=== PATIENT | female | born 1960 | race Caucasian/White ===

== ENCOUNTER → 2018-04-12 13:10 | Outpatient (CLI) | payer OTHER, SELFPAY ==
[2018-04-12 13:55] LABS: Hemoglobin A1C% w Est Avg Glu 8.6 % (4.0-6.0)
[2018-04-12 14:05] LABS: Alanine Aminotransferase 44 IU/L (9-52); Albumin 4.8 g/dL (3.5-5.0); Albumin Globulin Ratio 1.1 (1.0-2.8); Alkaline Phosphatase 140 U/L (38-126); Aspartate Aminotransferase 39 IU/L (14-36); BUN Creatinine Ratio 17.8 (6-22); Bilirubin Total 0.7 mg/dL (0.2-1.3); Blood Urea Nitrogen 16 mg/dL (7-17); Calcium 10.2 mg/dL (8.4-10.2); Carbon Dioxide 31 mmol/L (22-32); Chloride 95 mmol/L (98-107); Estimated Glomerular Filt Rate > 60.0 mL/min (>60); Globulin 4.3 g/dL (1.7-4.1); Glucose 325 mg/dL (70-100); HEMOLYSIS < 15 (0-50); Potassium 4.6 mmol/L (3.4-5.1); Sodium 139 mmol/L (137-145); Total Protein 9.1 g/dL (6.3-8.2)
[2018-04-12 16:01] LABS: Creatinine Urine Random 56.4 mg/dL
[2018-04-12 16:11] LABS: Microalbumi Creatinin Ratio Ur 10.6 ug/mg CR (<30); Microalbumin Urine Random < 0.6 mg/dL (0-1.6)
== END ==
PROVIDERS: PCP Internal Medicine; Visit Provider Internal Medicine
DX: E78.00 Pure hypercholesterolemia, unspecified (principal); E11.40 Type 2 diabetes mellitus with diabetic neuropathy, unspecified
CPT/HCPCS: 36415; 80053; 82043; 82570; 83036

== ENCOUNTER → 2018-07-19 10:23 | Outpatient (CLI) | payer OTHER, SELFPAY ==
[2018-07-19 12:26] LABS: Alanine Aminotransferase 46 IU/L (9-52); Albumin 4.9 g/dL (3.5-5.0); Albumin Globulin Ratio 1.5 (1.0-2.8); Alkaline Phosphatase 102 U/L (38-126); Aspartate Aminotransferase 37 IU/L (14-36); BUN Creatinine Ratio 21.4 (6-22); Bilirubin Total 0.9 mg/dL (0.2-1.3); Blood Urea Nitrogen 15 mg/dL (7-17); Calcium 10.7 mg/dL (8.4-10.2); Carbon Dioxide 30 mmol/L (22-32); Chloride 98 mmol/L (98-107); Estimated Glomerular Filt Rate > 60.0 mL/min (>60); Globulin 3.3 g/dL (1.7-4.1); Glucose 276 mg/dL (80-110); HEMOLYSIS < 15 (0-50); Potassium 4.3 mmol/L (3.4-5.1); Sodium 143 mmol/L (137-145); Total Protein 8.2 g/dL (6.3-8.2)
== END ==
PROVIDERS: PCP Internal Medicine; Visit Provider Internal Medicine
DX: E78.00 Pure hypercholesterolemia, unspecified (principal); E11.40 Type 2 diabetes mellitus with diabetic neuropathy, unspecified
CPT/HCPCS: 36415; 80053; 83036

== ENCOUNTER → 2019-01-10 10:34 | Outpatient (CLI) | payer OTHER, SELFPAY ==
[2019-01-10 12:09] LABS: Hemoglobin 14.9 g/dL (12.0-16.0)
[2019-01-10 12:35] LABS: Hemoglobin A1C% w Est Avg Glu 9.2 % (4.0-6.0)
[2019-01-10 12:36] LABS: BUN Creatinine Ratio 22.5 (6-22); Blood Urea Nitrogen 18 mg/dL (7-17); Calcium 10.4 mg/dL (8.4-10.2); Carbon Dioxide 28 mmol/L (22-32); Chloride 99 mmol/L (98-107); Estimated Glomerular Filt Rate > 60.0 mL/min (>60); Glucose 194 mg/dL (80-110); HEMOLYSIS < 15 (0-50); Sodium 139 mmol/L (137-145)
[2019-01-11 06:58] LABS: Cholesterol 201 mg/dL (140-199); HDL Cholesterol 44 mg/dL (40-60); LDL Cholesterol Calculated 107 mg/dL (<100); Triglycerides 252 mg/dL (35-150)
== END ==
PROVIDERS: PCP Internal Medicine; Visit Provider Internal Medicine
DX: E11.9 Type 2 diabetes mellitus without complications (principal); E78.00 Pure hypercholesterolemia, unspecified
CPT/HCPCS: 36415; 80048; 80061; 83036; 85018

== ENCOUNTER → 2019-01-12 12:33 | Outpatient (CLI) | payer OTHER, SELFPAY ==
[2019-01-14 15:52] LABS: C Peptide 2.62 ng/mL (0.80-3.85)
== END ==
PROVIDERS: PCP Internal Medicine; Visit Provider Internal Medicine
DX: E11.40 Type 2 diabetes mellitus with diabetic neuropathy, unspecified (principal)
CPT/HCPCS: 36415; 84681

== ENCOUNTER → 2019-01-29 08:12 | Outpatient (CLI) | payer OTHER, SELFPAY ==
--- NOTE | 2019-01-29 08:16 | DI.MG.S_ITS ---
BILATERAL DIGITAL SCREENING MAMMOGRAM 3D/2D WITH CAD: 01/29/2019 CLINICAL: Routine screening. Comparison is made to exams dated: 06/23/2017 mammogram, 05/22/2015 mammogram, and 03/22/2014 mammogram - [facility]. The tissue of both breasts is predominantly fatty. Current study was also evaluated with a Computer Aided Detection (CAD) system. No significant masses, calcifications, or other findings are seen in either breast. There has been no significant interval change. IMPRESSION: NEGATIVE There is no mammographic evidence of malignancy. A 1 year screening mammogram is recommended. This exam was interpreted at Station ID: [id number]. NOTE: For mammograms, a report in lay terms will be sent to the patient. Approximately 15% of breast malignancies will not be visualized mammographically. In the management of a palpable breast mass, a negative mammogram must not discourage biopsy of a clinically suspicious lesion. Electronically Signed By: Christine coles/jessica:01/31/2019 08:50:17 copy to: Tanner Nuñez letter sent: Normal Exam ACR BI-RADS Category 1: Negative 3341F
== END ==
PROVIDERS: PCP Internal Medicine; Visit Provider Specialist
DX: Z12.31 Encounter for screening mammogram for malignant neoplasm of breast (principal)
CPT/HCPCS: 77063; 77067

== ENCOUNTER → 2020-02-10 12:26 | Outpatient (CLI) | payer OTHER, SELFPAY ==
[2020-02-10 13:35] LABS: Add Manual Diff / Slide Review NO; Basophils Absolute Auto 0 /uL (0-100); Basophils Percent Auto 0.6 % (0-2); Eosinophils Absolute Auto 100 /uL (0-450); Eosinophils Percent Auto 1.6 % (2-4); Hematocrit 46.3 % (36-46); Hemoglobin 15.2 g/dL (12.0-16.0); Lymphocytes Absolute Auto 2100 /uL (1100-4500); Lymphocytes Percent Auto 26.2 % (25-40); Mean Corpuscular HGB Conc 32.9 % (30-36); Mean Corpuscular Volume 91.1 fL (80-100); Monocytes Absolute Auto 600 /uL (0-900); Monocytes Percent Auto 7.2 % (3-14); Neutrophils Absolute Auto 5200 /uL (1500-7000); Neutrophils Percent Auto 64.4 % (50-75); Platelet Count 300 X10^3/uL (150-400); Red Blood Cell Count 5.09 X10^6/uL (4.0-5.2); Red Cell Distribution Width 13.1 % (11.6-14.8); White Blood Cell Count 8.1 X10^3/uL (4.5-11.0)
[2020-02-10 13:45] LABS: Alanine Aminotransferase 53 IU/L (<35); Albumin 4.7 g/dL (3.5-5.0); Albumin Globulin Ratio 1.2 (1.0-2.8); Alkaline Phosphatase 123 U/L (38-126); Aspartate Aminotransferase 55 IU/L (14-36); BUN Creatinine Ratio 23.3 (6-22); Bilirubin Total 0.8 mg/dL (0.2-1.3); Blood Urea Nitrogen 17 mg/dL (7-17); Calcium 10.6 mg/dL (8.4-10.2); Carbon Dioxide 24 mmol/L (22-32); Chloride 101 mmol/L (98-107); Cholesterol 193 mg/dL (140-199); Estimated Glomerular Filt Rate > 60.0 mL/min (>60); Globulin 3.8 g/dL (1.7-4.1); Glucose 197 mg/dL (80-110); HDL Cholesterol 42 mg/dL (40-60); HEMOLYSIS < 15 (0-50); Hemoglobin A1C% w Est Avg Glu 8.3 % (4.0-6.0); LDL Cholesterol Calculated 106 mg/dL (<100); Potassium 3.8 mmol/L (3.4-5.1); Sodium 139 mmol/L (137-145); Total Protein 8.5 g/dL (6.3-8.2); Triglycerides 226 mg/dL (35-150)
[2020-02-10 14:12] LABS: Thyroid Stimulating Hormone 3.46 uIU/mL (0.47-4.68)
== END ==
PROVIDERS: PCP Internal Medicine; Referring Provider Internal Medicine; Visit Provider Internal Medicine
DX: E11.40 Type 2 diabetes mellitus with diabetic neuropathy, unspecified (principal); E78.00 Pure hypercholesterolemia, unspecified; L65.9 Nonscarring hair loss, unspecified
CPT/HCPCS: 36415; 80053; 80061; 83036; 84443; 85025

== ENCOUNTER → 2020-03-08 14:50 | Outpatient (CLI) | payer OTHER, SELFPAY ==
[2020-03-09 12:08] LABS: SARS CoV19 IgG Negative (Negative)
== END ==
PROVIDERS: PCP Internal Medicine; Referring Provider Internal Medicine; Visit Provider Internal Medicine
DX: Z03.818 Encounter for observation for suspected exposure to other biological agents ruled out (principal)
CPT/HCPCS: 36415; 86769

== ENCOUNTER → 2020-05-25 11:37 | Outpatient (CLI) | payer OTHER, SELFPAY ==
--- NOTE | 2020-05-25 | DI.MG.S_ITS ---
BILATERAL DIGITAL SCREENING MAMMOGRAM 3D/2D WITH CAD: 05/25/2020 CLINICAL: Routine screening. Comparison is made to exams dated: 01/29/2019 mammogram, 06/23/2017 mammogram, 05/22/2015 mammogram, 03/22/2014 mammogram, 03/21/2013 mammogram, and 03/19/2012 mammogram - [facility]. The tissue of both breasts is predominantly fatty. Current study was also evaluated with a Computer Aided Detection (CAD) system. No significant masses, calcifications, or other findings are seen in either breast. There has been no significant interval change. IMPRESSION: NEGATIVE There is no mammographic evidence of malignancy. A 1 year screening mammogram is recommended. This exam was interpreted at Station ID: [id number]. NOTE: For mammograms, a report in lay terms will be sent to the patient. Approximately 15% of breast malignancies will not be visualized mammographically. In the management of a palpable breast mass, a negative mammogram must not discourage biopsy of a clinically suspicious lesion. Electronically Signed By: Santo johnson/jessica:05/25/2020 13:26:49 copy to: Tanner Nuñez letter sent: Normal Exam ACR BI-RADS Category 1: Negative 3341F
== END ==
PROVIDERS: PCP Internal Medicine; Referring Provider Internal Medicine; Visit Provider Specialist
DX: Z12.31 Encounter for screening mammogram for malignant neoplasm of breast (principal)
CPT/HCPCS: 77063; 77067

== ENCOUNTER → 2020-05-30 13:29 | Outpatient (CLI) | payer OTHER, SELFPAY | PROVIDERS: PCP Internal Medicine; Referring Provider Internal Medicine; Visit Provider Internal Medicine | DX: M85.88 Other specified disorders of bone density and structure, other site (principal); Z78.0 Asymptomatic menopausal state; E11.9 Type 2 diabetes mellitus without complications; Z82.62 Family history of osteoporosis | CPT/HCPCS: 77080 ==

== ENCOUNTER → 2020-07-24 11:29 | Outpatient (CLI) | payer OTHER, SELFPAY ==
[2020-07-24 12:46] LABS: Hemoglobin A1C% w Est Avg Glu 8.9 % (4.0-6.0)
[2020-07-24 12:51] LABS: Alanine Aminotransferase 43 IU/L (<35); Albumin 4.6 g/dL (3.5-5.0); Albumin Globulin Ratio 1.4 (1.0-2.8); Alkaline Phosphatase 110 U/L (38-126); Aspartate Aminotransferase 42 IU/L (14-36); BUN Creatinine Ratio 18.2 (6-22); Bilirubin Total 0.7 mg/dL (0.2-1.3); Blood Urea Nitrogen 12 mg/dL (7-17); Calcium 9.7 mg/dL (8.4-10.2); Carbon Dioxide 28 mmol/L (22-32); Chloride 105 mmol/L (98-107); Cholesterol 175 mg/dL (140-199); Estimated Glomerular Filt Rate > 60.0 mL/min (>60); Globulin 3.4 g/dL (1.7-4.1); Glucose 180 mg/dL (80-110); HDL Cholesterol 48 mg/dL (40-60); HEMOLYSIS < 15 (0-50); LDL Cholesterol Calculated 83 mg/dL (<100); Potassium 3.9 mmol/L (3.4-5.1); Sodium 139 mmol/L (137-145); Triglycerides 221 mg/dL (35-150)
[2020-07-25 16:36] LABS: Fecal Immunochemical Test Negative (Negative)
== END ==
PROVIDERS: PCP Internal Medicine; Referring Provider Internal Medicine; Visit Provider Internal Medicine
DX: E11.65 Type 2 diabetes mellitus with hyperglycemia (principal); E78.5 Hyperlipidemia, unspecified; R94.5 Abnormal results of liver function studies; Z12.11 Encounter for screening for malignant neoplasm of colon
CPT/HCPCS: 36415; 80053; 80061; 82274; 83036

== ENCOUNTER → 2020-12-27 12:55 | Outpatient (CLI) | payer OTHER, SELFPAY ==
[2020-12-27 15:33] LABS: Alanine Aminotransferase 24 IU/L (<35); Albumin 4.6 g/dL (3.5-5.0); Albumin Globulin Ratio 1.4 (1.0-2.8); Alkaline Phosphatase 91 U/L (38-126); Aspartate Aminotransferase 31 IU/L (14-36); BUN Creatinine Ratio 20.7 (6-22); Bilirubin Total 0.5 mg/dL (0.2-1.3); Blood Urea Nitrogen 18 mg/dL (7-17); Calcium 10.1 mg/dL (8.4-10.2); Carbon Dioxide 29 mmol/L (22-32); Chloride 101 mmol/L (98-107); Estimated Glomerular Filt Rate > 60.0 mL/min (>60); Globulin 3.4 g/dL (1.7-4.1); Glucose 126 mg/dL (80-110); HEMOLYSIS < 15 (0-50); Potassium 4.4 mmol/L (3.4-5.1); Sodium 141 mmol/L (137-145)
[2020-12-27 15:58] LABS: Creatinine Urine Random 216.6 mg/dL
[2020-12-27 16:02] LABS: Microalbumi Creatinin Ratio Ur 7.3 ug/mg CR (<30); Microalbumin Urine Random 1.6 mg/dL (0-1.6)
== END ==
PROVIDERS: PCP Internal Medicine; Referring Provider Internal Medicine; Visit Provider Internal Medicine
DX: E11.65 Type 2 diabetes mellitus with hyperglycemia (principal); E78.5 Hyperlipidemia, unspecified; R79.89 Other specified abnormal findings of blood chemistry; Z79.4 Long term (current) use of insulin
CPT/HCPCS: 36415; 80053; 82043; 82570; 83036

== ENCOUNTER → 2021-04-12 10:31 | Outpatient (CLI) | payer OTHER, SELFPAY ==
[2021-04-12 11:54] LABS: Hemoglobin A1C% w Est Avg Glu 6.8 % (4.0-6.0)
[2021-04-12 11:57] LABS: BUN Creatinine Ratio 15.3 (6-22); Blood Urea Nitrogen 13 mg/dL (7-17); Calcium 9.9 mg/dL (8.4-10.2); Carbon Dioxide 30 mmol/L (22-32); Chloride 104 mmol/L (98-107); Estimated Glomerular Filt Rate > 60.0 mL/min (>60); Glucose 86 mg/dL (80-110); HEMOLYSIS < 15 (0-50); Potassium 3.5 mmol/L (3.4-5.1); Sodium 142 mmol/L (137-145)
== END ==
PROVIDERS: PCP Internal Medicine; Referring Provider Internal Medicine; Visit Provider Internal Medicine
DX: E11.65 Type 2 diabetes mellitus with hyperglycemia (principal); E78.5 Hyperlipidemia, unspecified
CPT/HCPCS: 36415; 80048; 83036

== ENCOUNTER → 2021-08-20 11:11 | Outpatient (CLI) | payer OTHER, SELFPAY ==
[2021-08-20 12:24] LABS: Hemoglobin A1C% w Est Avg Glu 6.9 % (4.0-6.0)
== END ==
PROVIDERS: PCP Internal Medicine; Referring Provider Podiatrist; Visit Provider Podiatrist
DX: R73.09 Other abnormal glucose (principal)
CPT/HCPCS: 36415; 83036

== ENCOUNTER → 2021-08-28 11:35 | Outpatient (CLI) | payer OTHER, SELFPAY ==
[2021-08-28 12:48] LABS: COVID19 -Nasal RAPID Negative (Negative)
== END ==
PROVIDERS: PCP Internal Medicine; Referring Provider Nurse Practitioner Family; Visit Provider Nurse Practitioner Family
DX: Z20.822 Contact with and (suspected) exposure to COVID-19 (principal)
CPT/HCPCS: 87635

== ENCOUNTER 2021-08-29 06:16 | Day surgery (SDC) | payer OTHER, SELFPAY ==
[2021-08-23 08:16] VITALS: BMI 29.7
[2021-08-29] VITALS (10 sets, daily range): BP systolic 94–129; BP diastolic 62–83; PULSE 85–92; RESP 12–16; TEMP 36.3; O2SAT 92–97; BMI 29.7
[2021-08-29] MEDS: LACTATED RINGERS 1,000 ML 42 ML IV ×2 (07:11→10:50)
--- NOTE | 2021-08-29 07:35 | PM.PREOP ---
Pre-operative Note COVID-19 COVID-19 status: Negative Result date/Date tested (Pos, Neg/Pending): 08/28/21 Interval Note History & Physical reviewed/Exam performed by Physician: Yes Changes to H&P: No
--- NOTE | 2021-08-29 07:36 | P.OP_ITS ---
Operative Date/Time/Diagnoses Date of procedure: 08/29/21 Time of procedure: 07:36 Pre-op diagnosis: Left hallux abductovalgus with bunion Post-op diagnosis: same Procedure & Clinicians Procedure: Left first metatarsocuneiform arthrodesis and bunionectomy (85306) Same procedure as scheduled: Yes Indications: Left foot painful bunion. Conservative measures failed to alleviate her pain and she wished to have surgical intervention at this time. We spoke of the risks, potential complications, expected outcomes. Consent was signed, no contra indications to the procedures at this time. Surgeon: Viridiana Garrido Click Yes if Unassisted: Yes Anesthesia Type: General Operative Notes Closure Type: primary Specimen(s): none sent Prosthetic devices, grafts, tissues, transplants, or devices: [place] Lap[place]us plate, 3.5(3) locking screws, (1) non-locking screw, Xemplifi DBM putty 1cc. Estimated Blood Loss (mL): 20 Tourniquet time (min): 120 Procedure in detail: The patient was brought to the operating room and placed on the operating table in the supine position. The tourniquet was placed about the left thigh. Well padded appropriately aligned. After induction of general anesthesia the foot and ankle were prepped and draped in the usual aseptic manner. The tourniquet was inflated. Incision was made over the 1st metatarsal cuneiform joint extending to the 1st metatarsophalangeal joint. The incision was deepened through subcutaneous tissues being careful to identify and retract all vital neurovascular structures. All bleeders were cauterized and ligated as necessary. A capsulotomy was performed to the 1st MTPJ exposing the enlarged medial eminence. The saw was used to resect the medial eminence. A rasp was used to reduce the sharp edges of the bone. Through the 1st interspace distally a lateral release was performed allowing the further mobilization of the 1st metatarsal phalangeal joint. A portion of the fibular sesamoid appeared to have an extra ossicle associated with it that was removed during the process of the lateral release. Confirming on mini C-arm, it appeared that the major portion of the sesamoid was still in place. Attention was then directed to the 1st metatarsocuneiform joint which was entered. The joint was taken down and a saw was used to resect the base of the 1st metatarsal and the distal leading edge of the medial cuneiform. This was done at a slight angle on the medial cuneiform to allow for closure of the intermetatarsal angle. It was found that the edge of the 1st metatarsal base laterally was too prominent to allow for full closure so the proximal lateral edge of the 1st metatarsal was also resected. The area was then able to be closed and the alignment was good. A drill was used to fenestrate either side of the former MC joint and fish scaling was also used. The area was irrigated with copious amounts normal sterile saline. With the aid of C-arm the guidewire was placed for temporary fixation through the 1st metatarsocuneiform joint. I was able to translate the 1st metatarsal slightly medially and plantarly to allow for better correction. It was noted to make sure that there was not a significant amount of plantar flexion distally. Next the plate was trialed and using the guide the lag screw was placed from distal lateral to proximal medial. The fusion site showed good compression, strength, and closure. There was still a little spot left that I was able to fill with demineralized bone matrix. The plate was then attached with the corresponding screws in the normal AO technique. This was reviewed on C-arm and noted to be strong and in appropriate alignment. Once this was loaded it would appear that there did not need to be a distal metatarsal osteotomy or phalangeal osteotomy and instead capsule balancing techniques with the soft tissue were appropriate. Once again after irrigation, the medial 1st metatarsophalangeal joint capsule was resected and closed down and alignment with Vicryl. The tourniquet was deflated and a prompt hyperemic response was seen in the foot. Deep and subcutaneous closure was closed performed with Vicryl and nylon to the skin. The foot was dressed with a lightly compressive sterile dressing and splint in alignment. She was then placed in a postoperative shoe and transferred to PACU with vital signs stable. Post-operative Condition: stable Disposition: PACU Plan for aftercare: Following a period of postoperative monitoring the patient will be discharged to home on written and oral postoperative instructions including keeping the dressing dry and intact, no weight/walking to the surgical foot, elevating the foot when seated at home. DVT prevention techniques have been reviewed. She will start her Lovenox injections tomorrow, and has her pain and antinausea medications at home.
[2021-08-29] MEDS: ACETAMINOPHEN 325 MG TABLET 975 MG PO (07:38)
[2021-08-29] MEDS: GABAPENTIN 300 MG CAPSULE PO (07:38)
[2021-08-29] MEDS: SCOPOLAMINE 1 PATCH TOP (07:38)
[2021-08-29] MEDS: CEFAZOLIN 1 GM VIAL 2 GM IV (08:15)
--- NOTE | 2021-08-29 08:30 | SUR.OPER ---
Supine on padded OR bed, head on pillow, arms secured on padded arm boards at <90 degrees abduction, legs uncrossed, safety belt at thigh, tape over blanket over lower legs.
--- NOTE | 2021-08-29 08:32 | SUR.OPER ---
Supine on padded OR bed, head on pillow, arms secured on padded arm boards at <90 degrees abduction, legs uncrossed, safety belt at waist, tape over blanket over lower right leg, left leg draped free with gel bump under left thigh.
[2021-08-29] MEDS: BUPIVACAINE 0.5% (PF) VIAL 30 ML INJ (08:39)
--- NOTE | 2021-08-29 12:35 | SUR.PHASEII ---
patient converses appropriately with staff. LLE elevated on pillows. post-op shoe in place. denies pain or nausea. allowed to rest at this time.
--- NOTE | 2021-08-29 14:14 | SUR.PHASEII ---
patient nauseated upon departure. allowed to rest for a period of time prior to transfer. IV was out. Patient has antinausea medication at home for post-op.
== END 2021-08-29 14:20 | disposition home or self-care (01) ==
PROVIDERS: PCP Internal Medicine; Referring Provider Podiatrist; Visit Provider Podiatrist
PROC: (CPT 28297; principal; 2021-08-29 07:45)
DX: M20.12 Hallux valgus (acquired), left foot (principal); E11.49 Type 2 diabetes mellitus with other diabetic neurological complication; E11.9 Type 2 diabetes mellitus without complications; E78.5 Hyperlipidemia, unspecified; M85.80 Other specified disorders of bone density and structure, unspecified site; D68.51 Activated protein C resistance
CPT/HCPCS: 28297; 82962; J0690; J1170; J1885; J2250; J2405; J2704

== ENCOUNTER → 2021-10-16 09:51 | Outpatient (CLI) | payer OTHER, SELFPAY ==
[2021-10-16 10:17] LABS: Hemoglobin A1C% w Est Avg Glu 7.4 % (4.0-6.0)
[2021-10-16 11:05] LABS: Alanine Aminotransferase 24 IU/L (<35); Albumin 4.8 g/dL (3.5-5.0); Albumin Globulin Ratio 1.3 (1.0-2.8); Alkaline Phosphatase 105 U/L (38-126); Aspartate Aminotransferase 27 IU/L (14-36); BUN Creatinine Ratio 12.3 (6-22); Bilirubin Total 0.7 mg/dL (0.2-1.3); Blood Urea Nitrogen 13 mg/dL (7-17); Calcium 10.3 mg/dL (8.4-10.2); Carbon Dioxide 32 mmol/L (22-32); Chloride 100 mmol/L (98-107); Cholesterol 208 mg/dL (140-199); Estimated Glomerular Filt Rate 52.4 mL/min (>60); Globulin 3.6 g/dL (1.7-4.1); Glucose 211 mg/dL (80-110); HDL Cholesterol 54 mg/dL (40-60); HEMOLYSIS < 15 (0-50); LDL Cholesterol Calculated 117 mg/dL (<100); Potassium 3.8 mmol/L (3.4-5.1); Sodium 140 mmol/L (137-145); Total Protein 8.4 g/dL (6.3-8.2); Triglycerides 184 mg/dL (35-150)
[2021-10-16 11:09] LABS: Microalbumin Urine Random 11.5 mg/dL (0-1.6)
[2021-10-16 11:35] LABS: Creatinine Urine Random 510.6 mg/dL; Microalbumi Creatinin Ratio Ur 22.5 ug/mg CR (<30)
== END ==
PROVIDERS: PCP Internal Medicine; Referring Provider Internal Medicine; Visit Provider Internal Medicine
DX: E11.9 Type 2 diabetes mellitus without complications (principal); E78.2 Mixed hyperlipidemia; R79.89 Other specified abnormal findings of blood chemistry; Z79.4 Long term (current) use of insulin
CPT/HCPCS: 36415; 80053; 80061; 82043; 82570; 83036

== ENCOUNTER → 2021-10-31 11:17 | Outpatient (CLI) | payer OTHER, SELFPAY ==
[2021-11-01 12:33] LABS: Fecal Immunochemical Test Negative (Negative)
== END ==
PROVIDERS: PCP Internal Medicine; Referring Provider Internal Medicine; Visit Provider Internal Medicine
DX: Z12.11 Encounter for screening for malignant neoplasm of colon (principal)
CPT/HCPCS: 82274

== ENCOUNTER → 2022-01-14 15:19 | Outpatient (CLI) | payer OTHER, SELFPAY ==
--- NOTE | 2022-01-14 15:20 | DI.MG.S_ITS ---
BILATERAL DIGITAL SCREENING MAMMOGRAM 3D/2D WITH CAD: 01/14/2022 CLINICAL: Routine screening. Comparison is made to exams dated: 05/25/2020 mammogram, 01/29/2019 mammogram, and 06/23/2017 mammogram - [facility]. The tissue of both breasts is predominantly fatty. Current study was also evaluated with a Computer Aided Detection (CAD) system. There is a possible developing 0.4 cm oval equal density asymmetry in the left breast at 4 o'clock anterior depth. This is more prominent and increased in size. No other significant masses, calcifications, or other findings are seen in either breast. IMPRESSION: INCOMPLETE: NEEDS ADDITIONAL IMAGING EVALUATION The possible developing 0.4 cm oval equal density asymmetry in the left breast resembles a cyst or a lymph node and is indeterminate. Additional views with possible ultrasound are recommended. This exam was interpreted at Station ID: [id number]. NOTE: For mammograms, a report in lay terms will be sent to the patient. Approximately 15% of breast malignancies will not be visualized mammographically. In the management of a palpable breast mass, a negative mammogram must not discourage biopsy of a clinically suspicious lesion. Electronically Signed By: Luis figueroa/jessica:01/14/2022 18:16:52 copy to: Tanner Nuñez letter sent: Additional Imaging Needed ACR BI-RADS Category 0: Incomplete 3340F
== END ==
PROVIDERS: PCP Internal Medicine; Referring Provider Internal Medicine; Visit Provider Internal Medicine
DX: Z12.31 Encounter for screening mammogram for malignant neoplasm of breast (principal)
CPT/HCPCS: 77063; 77067

== ENCOUNTER → 2022-02-17 13:50 | Outpatient (CLI) | payer OTHER, SELFPAY ==
[2022-02-17 14:59] LABS: Hemoglobin A1C% w Est Avg Glu 8.1 % (4.0-6.0)
[2022-02-17 15:33] LABS: BUN Creatinine Ratio 19.3 (6-22); Blood Urea Nitrogen 16 mg/dL (7-17); Calcium 9.3 mg/dL (8.4-10.2); Carbon Dioxide 30 mmol/L (22-32); Chloride 105 mmol/L (98-107); Estimated Glomerular Filt Rate > 60 mL/min (>60); Glucose 105 mg/dL (80-110); HEMOLYSIS < 15 (0-50); Potassium 3.9 mmol/L (3.4-5.1); Sodium 140 mmol/L (137-145)
== END ==
PROVIDERS: PCP Internal Medicine; Referring Provider Internal Medicine; Visit Provider Internal Medicine
DX: R79.89 Other specified abnormal findings of blood chemistry (principal); E11.65 Type 2 diabetes mellitus with hyperglycemia
CPT/HCPCS: 36415; 80048; 83036

== ENCOUNTER → 2022-05-22 14:40 | Outpatient (CLI) | payer OTHER, SELFPAY ==
[2022-05-22 17:07] LABS: Hemoglobin A1C% w Est Avg Glu 7.8 % (4.0-6.0)
[2022-05-22 19:47] LABS: BUN Creatinine Ratio 17.2 (6-22); Blood Urea Nitrogen 16 mg/dL (7-17); Calcium 9.5 mg/dL (8.4-10.2); Carbon Dioxide 27 mmol/L (22-32); Chloride 102 mmol/L (98-107); Estimated Glomerular Filt Rate > 60 mL/min (>60); Glucose 250 mg/dL (80-110); HEMOLYSIS < 15 (0-50)
[2022-05-22 19:50] LABS: Sodium 141 mmol/L (137-145)
== END ==
PROVIDERS: PCP Internal Medicine; Referring Provider Internal Medicine; Visit Provider Internal Medicine
DX: E11.9 Type 2 diabetes mellitus without complications (principal); E78.5 Hyperlipidemia, unspecified; R79.89 Other specified abnormal findings of blood chemistry; Z79.4 Long term (current) use of insulin
CPT/HCPCS: 36415; 80048; 83036

== ENCOUNTER → 2022-06-02 09:36 | Outpatient (CLI) | payer OTHER, SELFPAY | PROVIDERS: PCP Internal Medicine; Referring Provider Internal Medicine; Visit Provider Internal Medicine | DX: Z13.820 Encounter for screening for osteoporosis (principal); Z78.0 Asymptomatic menopausal state; M85.88 Other specified disorders of bone density and structure, other site | CPT/HCPCS: 77080 ==

== ENCOUNTER → 2022-12-03 06:38 | Outpatient (CLI) | payer OTHER, SELFPAY ==
--- NOTE | 2022-12-03 06:39 | DI.US.S_ITS ---
PROCEDURE: US PELVIC COMPLETE INDICATIONS: PMB TECHNIQUE: Real-time scanning was performed of the pelvic organs, with image documentation. Additional endovaginal scanning was necessary due to incomplete visualization of the adnexal and endometrial structures by transabdominal scanning. COMPARISON: None. FINDINGS: Uterus: Uterus is vertically oriented and age-appropriate in size at 6.0 x 3.3 x 5.1 cm. The myometrium is heterogeneous. The endometrium is not well seen, possibly measuring about 6-7 mm in diameter. The endocervix contains complex cysts, nabothian cysts versus other. Vascularity was not obtained. There is a vaginal estrogen ring. Ovaries: Neither ovary was seen. Other: No pathologic free abdominal or pelvic fluid. IMPRESSION: 1. Suboptimal visualization of the endometrium. 2. Complex cystic material in the endocervix, potentially nabothian cysts, blood clot, less likely neoplasm. 3. Heterogeneous uterine myometrium. This is nonspecific. 4. Nonvisualization of either ovary. 5. Pelvic MRI is recommended for further detail. We strive to produce accurate, complete, and clear reports of imaging services. To assist us in improving patient care, this report was composed using standard report templates and voice recognition software. Therefore, it may contain abnormal punctuation, insertions and/or omissions. Occasional wrong-word or sound-alike substitutions may occur. Though we review the report and make efforts to correct it, we do recommend that the report be read carefully in proper context to recognize any text inaccuracies. Dictated by: Oneyda Solomon M.D. on 12/03/2022 at 8:36 Approved by: Oneyda Solomon M.D. on 12/03/2022 at 8:43
== END ==
PROVIDERS: PCP Internal Medicine; Referring Provider Obstetrics & Gynecology; Visit Provider Obstetrics & Gynecology
DX: N95.0 Postmenopausal bleeding (principal); N88.8 Other specified noninflammatory disorders of cervix uteri
CPT/HCPCS: 76830; 76856

== ENCOUNTER → 2023-02-24 14:42 | Outpatient (CLI) | payer OTHER, SELFPAY ==
[2023-02-24 15:32] LABS: Add Manual Diff / Slide Review NO; Basophils Absolute Auto 100 /uL (0-100); Eosinophils Absolute Auto 200 /uL (0-450); Eosinophils Percent Auto 1.8 % (2-4); Hematocrit 43.3 % (36-46); Hemoglobin 14.5 g/dL (12.0-16.0); Lymphocytes Absolute Auto 2300 /uL (1100-4500); Lymphocytes Percent Auto 27.5 % (25-40); Mean Corpuscular HGB Conc 33.6 % (30-36); Mean Corpuscular Volume 89.2 fL (80-100); Monocytes Absolute Auto 600 /uL (0-900); Neutrophils Absolute Auto 5200 /uL (1500-7000); Neutrophils Percent Auto 62.7 % (50-75); Platelet Count 347 X10^3/uL (150-400); Red Blood Cell Count 4.85 X10^6/uL (4.0-5.2); Red Cell Distribution Width 13.3 % (11.6-14.8); White Blood Cell Count 8.3 X10^3/uL (4.5-11.0)
[2023-02-24 15:46] LABS: Alanine Aminotransferase 41 IU/L (<35); Albumin 4.3 g/dL (3.5-5.0); Albumin Globulin Ratio 1.2 (1.0-2.8); Alkaline Phosphatase 113 U/L (38-126); Aspartate Aminotransferase 48 IU/L (14-36); BUN Creatinine Ratio 15.7 (6-22); Bilirubin Total 0.7 mg/dL (0.2-1.3); Blood Urea Nitrogen 13 mg/dL (7-17); Calcium 9.4 mg/dL (8.4-10.2); Carbon Dioxide 29 mmol/L (22-32); Chloride 99 mmol/L (98-107); Cholesterol 183 mg/dL (140-199); Estimated Glomerular Filt Rate > 60 mL/min (>60); Globulin 3.5 g/dL (1.7-4.1); Glucose 171 mg/dL (80-110); HDL Cholesterol 48 mg/dL (40-60); HEMOLYSIS < 15 (0-50); LDL Cholesterol Calculated 94 mg/dL (<100); Potassium 3.9 mmol/L (3.4-5.1); Sodium 137 mmol/L (137-145); Total Protein 7.8 g/dL (6.3-8.2); Triglycerides 205 mg/dL (35-150)
[2023-02-24 18:44] LABS: Microalbumi Creatinin Ratio Ur 8.8 ug/mg CR (<30); Microalbumin Urine Random 2.6 mg/dL (0-1.6)
[2023-02-26 07:36] LABS: Labcorp Hemoglobin (Hb) A1c 8.7 % (4.8-5.6)
== END ==
PROVIDERS: PCP Internal Medicine; Referring Provider Internal Medicine; Visit Provider Internal Medicine
DX: D68.51 Activated protein C resistance (principal); E11.9 Type 2 diabetes mellitus without complications; E78.2 Mixed hyperlipidemia; R79.89 Other specified abnormal findings of blood chemistry; Z79.4 Long term (current) use of insulin
CPT/HCPCS: 36415; 80053; 80061; 82043; 82570; 83036; 85025

== ENCOUNTER → 2023-06-08 10:14 | Outpatient (CLI) | payer OTHER, SELFPAY ==
[2023-06-08 11:35] LABS: Hemoglobin A1C% w Est Avg Glu 7.3 % (4.0-6.0)
[2023-06-08 11:47] LABS: Alanine Aminotransferase 50 IU/L (<35); Albumin 4.4 g/dL (3.5-5.0); Albumin Globulin Ratio 1.3 (1.0-2.8); Alkaline Phosphatase 108 U/L (38-126); Aspartate Aminotransferase 64 IU/L (14-36); BUN Creatinine Ratio 14.6 (6-22); Bilirubin Total 0.7 mg/dL (0.2-1.3); Blood Urea Nitrogen 13 mg/dL (7-17); Carbon Dioxide 28 mmol/L (22-32); Chloride 103 mmol/L (98-107); Estimated Glomerular Filt Rate > 60 mL/min (>60); Globulin 3.4 g/dL (1.7-4.1); Glucose 137 mg/dL (80-110); HEMOLYSIS < 15 (0-50); Potassium 4.6 mmol/L (3.4-5.1); Sodium 141 mmol/L (137-145); Total Protein 7.8 g/dL (6.3-8.2)
== END ==
PROVIDERS: PCP Internal Medicine; Referring Provider Internal Medicine; Visit Provider Internal Medicine
DX: E11.9 Type 2 diabetes mellitus without complications (principal); R79.89 Other specified abnormal findings of blood chemistry; Z79.4 Long term (current) use of insulin
CPT/HCPCS: 36415; 80053; 83036

== ENCOUNTER → 2023-06-18 08:29 | Outpatient (CLI) | payer MEDICARE, OTHER, SELFPAY ==
[2023-06-19 16:10] LABS: Fecal Immunochemical Test Negative (Negative)
== END ==
PROVIDERS: PCP Internal Medicine; Referring Provider Internal Medicine; Visit Provider Internal Medicine
DX: Z12.11 Encounter for screening for malignant neoplasm of colon (principal)
CPT/HCPCS: 82274

== ENCOUNTER → 2023-06-26 07:36 | Outpatient (CLI) | payer MEDICARE, OTHER, SELFPAY ==
--- NOTE | 2023-06-26 07:36 | DI.ECHO.S_ITS ---
[facility] +---------+ : : [address] : : : : [id number] : : : : Phone: [phone]+ Echocardiogram Report + + :Name: GABRIELA AGUILERA Study Date: 06/26/2023 Height: 67 in : :[facility] ReadingLocation: Weight: 193 lb : : Gender: Female BSA: 2.0 m2 : :: 1960 Age: 63 yrs BP: 135/88 mmHg: :Reason For Study: Tachycardia : :Ordering Physician: KVNG, : :CAMILLA Calero Performed By: Noemi Jimenez : :Referring: CAMILLA CALDERON : + + Interpretation Summary The left ventricle is normal in size. The left ventricular ejection fraction is normal. The ejection fraction is estimated to be 55-60%. The right ventricular cavity is small. Visually RV function appears to be preserved. No significant valvular pathology seen. Procedure: A two-dimensional transthoracic echocardiogram with color flow and Doppler was performed. The patient had an echocardiogram, but there is no comparison study available. The study quality was technically difficult. The patient was in normal sinus rhythm during the exam. Left Ventricle: The left ventricle is normal in size. Proximal septal thickening is noted. There is no echo evidence for significant left ventricular outflow tract obstruction. There is no thrombus. The ejection fraction is estimated to be 55-60%. The left ventricular ejection fraction is normal. There are no obvious focal wall motion abnormalities noted but poor endocardial definition reduces the sensitivity for the detection of such. Diastolic parameters suggest a relaxation abnormality of the left ventricle, consistent with probable normal filling pressures. Right Ventricle: The right ventricular cavity is small. Visually RV function appears to be preserved. Atria: The left atrial size is normal. Right atrial size is normal. There is no Doppler evidence for an interatrial shunt. The thickening of interatrial septum suggests lipomatous hypertrophy. Mitral Valve: The mitral valve is normal. There is no mitral valve stenosis. There is mild mitral regurgitation. Aortic Valve: The aortic valve is trileaflet. The aortic valve opens well. There is no aortic valve stenosis. There is trace aortic regurgitation. Tricuspid Valve: The tricuspid valve is normal. There is no tricuspid stenosis. There is trace tricuspid regurgitation. Pulmonary artery pressures cannot be estimated because of the lack of a measurable TR jet velocity. Pulmonic Valve: The pulmonic valve is not well visualized. There is no pulmonic valvular stenosis. There is trace pulmonic regurgitation. Great Vessels: The aortic root is normal size. The ascending aorta is normal in size. The pulmonary artery is normal size. The inferior vena cava was not well visualized. Pericardium/ Pleura There is no pericardial effusion. There is an anterior echo-free space consistent with a fat pad. There is no pleural effusion. MMode/2D Measurements & Calculations LVIDd: 4.2 cm LVOT diam: 1.9 cm LVIDs: 3.4 cm Ao root diam: 3.3 cm FS: 19.0 % asc Aorta Diam: 3.2 cm IVSd: 0.90 cm LVPWd: 0.90 cm LV ernst. diameter/BSA (cm/m^2): 2.1 LV sys. diameter/BSA (cm/m^2): 1.7 LA A2 area: 16.2 cm2 RA long axis: 4.0 cm LA A4 area: 12.2 cm2 RA area: 8.1 cm2 LA length (vol): 5.5 cm RA vol: 13.8 ml LA vol: 30.7 ml RA : 6.9 ml/m2 LA vol index: 15.4 ml/m2 IVC diam: 2.0 cm RVD1 (basal): 2.4 cm LVLs ap4: 5.9 cm TAPSE: 1.2 cm LVLd ap2: 6.4 cm TAPSE_phl: 1.2 cm LVLs ap2: 5.5 cm Doppler Measurements & Calculations Ao V2 max: 106.5 cm/sec LVOT Max Pradeep: 110.5 cm/sec Ao V2 mean: 75.3 cm/sec LV V1 max P.9 mmHg Ao max P.0 mmHg LV V1 VTI: 22.5 cm Ao mean P.0 mmHg AMY(I,D): 2.8 cm2 Ao V2 VTI: 22.8 cm AMY(V,D): 2.9 cm2 sev ratio: 0.99 AMY indexed to BSA (cm^2/m^2): 1.4 MV E max pradeep: 71.0 cm/sec PA V2 max: 83.0 cm/sec MV A max pradeep: 93.6 cm/sec PA V2 mean: 57.8 cm/sec MV E/A: 0.76 PA mean P.0 mmHg Med Peak E' Pradeep: 4.6 cm/sec PA pr(Accel): 49.3 mmHg E/E' med: 15.5 Lat Peak E' Pradeep: 6.8 cm/sec E/E' lat: 10.5 E/e' average: 13.0 MV dec time: 0.20 sec SV(LVOT): 63.8 ml AV VR_phl: 1.0 AMY(VTI)/BSA_phl: 1.4 Reading Physician:04:27 PM
== END ==
PROVIDERS: PCP Internal Medicine; Referring Provider Internal Medicine; Visit Provider Internal Medicine
DX: I34.0 Nonrheumatic mitral (valve) insufficiency (principal); R00.0 Tachycardia, unspecified; R79.89 Other specified abnormal findings of blood chemistry; E11.9 Type 2 diabetes mellitus without complications; Z79.4 Long term (current) use of insulin
CPT/HCPCS: 93306

== ENCOUNTER → 2023-07-28 07:57 | Outpatient (CLI) | payer MEDICARE, OTHER, SELFPAY ==
--- NOTE | 2023-07-28 07:58 | DI.MG.S_ITS ---
BILATERAL DIGITAL SCREENING MAMMOGRAM 3D/2D WITH CAD: 07/28/2023 CLINICAL: Routine screening. Comparison is made to exams dated: 01/14/2022 mammogram, 05/25/2020 mammogram, and 06/23/2017 mammogram - [facility]. Both breasts are almost entirely fatty (category a/<25% glandular tissue). Current study was also evaluated with a Computer Aided Detection (CAD) system. No significant masses, calcifications, or other findings are seen in either breast. There has been no significant interval change. IMPRESSION: NEGATIVE There is no mammographic evidence of malignancy. A 1 year screening mammogram is recommended. Based on the Tyrer Cuzick model (a risk assessment model) the patient's lifetime risk is 3.1% and her 10 year risk is 1.5%. According to the ACR, ACS, and NCCN guidelines, an annual breast MRI exam along with mammogram is recommended if the patient's lifetime risk is 20% or greater. This exam was interpreted at Station ID: [id number]. NOTE: For mammograms, a report in lay terms will be sent to the patient. Approximately 15% of breast malignancies will not be visualized mammographically. In the management of a palpable breast mass, a negative mammogram must not discourage biopsy of a clinically suspicious lesion. Electronically Signed By: Christine coles/jessica:07/28/2023 08:59:36 copy to: Tanner Nuñez letter sent: Normal Exam ACR BI-RADS Category 1: Negative 3341F
== END ==
PROVIDERS: PCP Internal Medicine; Referring Provider Internal Medicine; Visit Provider Internal Medicine
DX: Z12.31 Encounter for screening mammogram for malignant neoplasm of breast (principal); E11.9 Type 2 diabetes mellitus without complications; Z79.4 Long term (current) use of insulin; R79.89 Other specified abnormal findings of blood chemistry; R00.0 Tachycardia, unspecified
CPT/HCPCS: 77063; 77067

== ENCOUNTER → 2023-09-08 11:44 | Outpatient (CLI) | payer MEDICARE, OTHER, SELFPAY ==
[2023-09-08 13:40] LABS: Hemoglobin A1C% w Est Avg Glu 6.5 % (4.0-6.0)
[2023-09-08 13:41] LABS: Alanine Aminotransferase 28 IU/L (<35); Albumin 4.2 g/dL (3.5-5.0); Albumin Globulin Ratio 1.2 (1.0-2.8); Alkaline Phosphatase 91 U/L (38-126); Aspartate Aminotransferase 35 IU/L (14-36); BUN Creatinine Ratio 13.6 (6-22); Bilirubin Total 0.8 mg/dL (0.2-1.3); Blood Urea Nitrogen 12 mg/dL (7-17); Calcium 10.3 mg/dL (8.4-10.2); Carbon Dioxide 29 mmol/L (22-32); Chloride 101 mmol/L (98-107); Cholesterol 144 mg/dL (140-199); Estimated Glomerular Filt Rate > 60 mL/min (>60); Globulin 3.5 g/dL (1.7-4.1); Glucose 106 mg/dL (80-110); HDL Cholesterol 40 mg/dL (40-60); HEMOLYSIS < 15 (0-50); LDL Cholesterol Calculated 73 mg/dL (<100); Potassium 4.4 mmol/L (3.4-5.1); Sodium 138 mmol/L (137-145); Total Protein 7.7 g/dL (6.3-8.2); Triglycerides 153 mg/dL (35-150)
== END ==
PROVIDERS: PCP Internal Medicine; Referring Provider Internal Medicine; Visit Provider Internal Medicine
DX: E11.9 Type 2 diabetes mellitus without complications (principal); R79.89 Other specified abnormal findings of blood chemistry; Z79.4 Long term (current) use of insulin; R00.0 Tachycardia, unspecified; E11.65 Type 2 diabetes mellitus with hyperglycemia; E78.5 Hyperlipidemia, unspecified
CPT/HCPCS: 36415; 80053; 80061; 83036

== ENCOUNTER → 2023-12-08 08:25 | Outpatient (CLI) | payer MEDICARE, OTHER, SELFPAY ==
[2023-12-08 09:09] LABS: Hemoglobin A1C% w Est Avg Glu 6.4 % (4.0-6.0)
[2023-12-08 09:18] LABS: Alanine Aminotransferase 31 IU/L (<35); Albumin 4.4 g/dL (3.5-5.0); Albumin Globulin Ratio 1.2 (1.0-2.8); Alkaline Phosphatase 94 U/L (38-126); Aspartate Aminotransferase 45 IU/L (14-36); BUN Creatinine Ratio 14.6 (6-22); Bilirubin Total 0.9 mg/dL (0.2-1.3); Blood Urea Nitrogen 13 mg/dL (7-17); Calcium 9.9 mg/dL (8.4-10.2); Carbon Dioxide 28 mmol/L (22-32); Chloride 103 mmol/L (98-107); Estimated Glomerular Filt Rate > 60 mL/min (>60); Globulin 3.7 g/dL (1.7-4.1); Glucose 111 mg/dL (80-110); HEMOLYSIS < 15 (0-50); Potassium 4.4 mmol/L (3.4-5.1); Sodium 140 mmol/L (137-145); Total Protein 8.1 g/dL (6.3-8.2)
[2023-12-10 13:36] LABS: Calcium 10.1 mg/dL (8.7-10.3); Parathyroid Hormone, Intact 38 pg/mL (15-65)
== END ==
PROVIDERS: PCP Internal Medicine; Referring Provider Internal Medicine; Visit Provider Internal Medicine
DX: E11.9 Type 2 diabetes mellitus without complications (principal); Z79.4 Long term (current) use of insulin; E83.52 Hypercalcemia; R79.89 Other specified abnormal findings of blood chemistry
CPT/HCPCS: 36415; 80053; 82310; 83036; 83970; 84443

== ENCOUNTER → 2024-05-12 11:04 | Outpatient (CLI) | payer MEDICARE, OTHER, SELFPAY ==
[2024-05-12 12:32] LABS: Hemoglobin A1C% w Est Avg Glu 6.6 % (4.0-6.0)
[2024-05-12 12:56] LABS: Alanine Aminotransferase 27 IU/L (<35); Albumin 4.5 g/dL (3.5-5.0); Albumin Globulin Ratio 1.3 (1.0-2.8); Alkaline Phosphatase 88 U/L (38-126); Aspartate Aminotransferase 33 IU/L (14-36); Bilirubin Total 0.8 mg/dL (0.2-1.3); Blood Urea Nitrogen 15 mg/dL (7-17); Calcium 10.2 mg/dL (8.4-10.2); Carbon Dioxide 29 mmol/L (22-32); Chloride 103 mmol/L (98-107); Cholesterol 167 mg/dL (140-199); Estimated Glomerular Filt Rate 58 mL/min (>60); Globulin 3.5 g/dL (1.7-4.1); Glucose 128 mg/dL (80-110); HDL Cholesterol 43 mg/dL (40-60); HEMOLYSIS < 15 (0-50); LDL Cholesterol Calculated 92 mg/dL (<100); Sodium 140 mmol/L (137-145); Triglycerides 158 mg/dL (35-150)
== END ==
PROVIDERS: PCP Internal Medicine; Referring Provider Internal Medicine; Visit Provider Internal Medicine
DX: E11.9 Type 2 diabetes mellitus without complications (principal); Z79.4 Long term (current) use of insulin; E78.5 Hyperlipidemia, unspecified
CPT/HCPCS: 36415; 80053; 80061; 83036

== ENCOUNTER → 2024-06-28 16:18 | Outpatient (CLI) | payer MEDICARE, OTHER, SELFPAY ==
--- NOTE | 2024-06-28 16:19 | DI.US.S_ITS ---
PROCEDURE: US PELVIC COMPLETE INDICATIONS: PMB TECHNIQUE: Real-time scanning was performed of the pelvic organs, with image documentation. Additional endovaginal scanning was necessary due to incomplete visualization of the adnexal and endometrial structures by transabdominal scanning. COMPARISON: [facility], , US PELVIC COMPLETE, 06/17/2023, 10:45. FINDINGS: Uterus: Uterus is anteverted and normal in size at 5.5 x 3.7 x 5.2 cm. The myometrium is homogeneous. The endometrium measures 6.4 mm combined thickness. No focal mass. Ovaries: The right ovary measures 1.7 x 1.5 x 1.6 cm, with a calculated ovarian volume of 2.2 cc. The left ovary measures 2.6 x 1.4 x 1.8 cm, with a calculated ovarian volume of 3.3 cc. The ovaries have a normal sonographic appearance. Less than 12 follicles can be seen in each ovary. No adnexal masses are seen. Other: No pathologic free abdominal or pelvic fluid. IMPRESSION: Thickened endometrium. Despite no visualized focal mass, thickness is abnormally thickened in post menopausal patient with given history of bleeding. Malignancy cannot be excluded and further evaluation with endometrial sampling is recommended. We strive to produce accurate, complete, and clear reports of imaging services. To assist us in improving patient care, this report was composed using standard report templates and voice recognition software. Therefore, it may contain abnormal punctuation, insertions and/or omissions. Occasional wrong-word or sound-alike substitutions may occur. Though we review the report and make efforts to correct it, we do recommend that the report be read carefully in proper context to recognize any text inaccuracies. Dictated by: Sania Clark M.D. on 06/29/2024 at 16:18 Approved by: Sania Clark M.D. on 06/29/2024 at 16:19
== END ==
PROVIDERS: PCP Internal Medicine; Referring Provider Obstetrics & Gynecology; Visit Provider Obstetrics & Gynecology
DX: N95.0 Postmenopausal bleeding (principal); R93.89 Abnormal findings on diagnostic imaging of other specified body structures
CPT/HCPCS: 76856

== ENCOUNTER 2024-07-04 12:08 | Day surgery (SDC) | payer MEDICARE, OTHER, SELFPAY ==
[2024-07-01 15:46] VITALS: BMI 28.4
--- NOTE | 2024-07-04 | PATH_ITS ---
[facility] Accession Number: [id number] No. of containers..01 Tissue . 01 Material submitted: . endometrium - ENDOMETRIAL . 01 Diagnosis: ENDOMETRIUM, CURETTINGS: Benign endometrial polyp. No significant cytologic atypia and no malignancy. V 07/06/2024 1239 Local . 01 Electronically signed: . Jaqui Cedillo MD, Pathologist NPI- [id number] . 01 Gross description: . Received in formalin with two patient identifiers and endometrial curettings and polyp, are multiple pierce and brown soft tissue fragments aggregating to 1.5 x 0.6 x 0.2 cm. Filtered and submitted in A1. ([id number]) /MRV 07/05/2024 1122 Local . 01 Pathologist provided ICD-10: N84.0, N95.0 . 01 CPT . 695516 Specimen Comment: A courtesy copy of this report has been sent to [phone] Performed at: [address] [facility] [address], [place], [place] [id number] MD Jordan Sanchez MD Phone: [phone]
--- NOTE | 2024-07-04 12:39 | P.HPOB_ITS ---
History of Present Illness History of Present Illness Reason for admission: vaginal bleeding (Postmenopausal) Narrative: Acacia Wells is a 64 year old female 2 para 2 who presents for a D&C hysteroscopy due to postmenopausal bleeding, endometrial hyperplasia on ultrasound, and cervical stenosis. Unable to obtain biopsy in the office. 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 for tuberculosis Fatty infiltration of liver Menopausal symptoms Hyperlipidemia Surgical History (Updated 10/21/21 @ 15:38 by Hema Canales MD) S/P bunionectomy (~08/2021) History of cataract surgery (2013) Family History (Updated 07/28/18 @ 14:54 by Meliza Bueno) Father Liver cancer Social History household members: spouse Smoking Status: Never smoker alcohol intake: never Meds Home Medications and Allergies Home Medications Medication Instructions Recorded Confirmed Type acetaminophen 500 mg tablet 500 mg PO Q4HP PRN Pain (Scale 07/20/17 07/01/24 History (Tylenol Extra Strength) Score 1-3) ##0 aspirin 81 mg chewable tablet 81 mg PO QDAY ##0 07/20/17 07/01/24 History calcium carbonate 600 mg NG ##0 07/20/17 07/01/24 History blood sugar diagnostic (Contour #100 ea 07/31/20 07/01/24 Rx Next Test Strips) cetirizine 10 mg disintegrating 10 mg PO QDAYP PRN allergy 02/15/21 07/01/24 Rx tablet (Zyrtec) symptoms #90 tabs CMP Amitrip2%/Gaba5%/Baclo2% 1 ea topical .2-3XD #15 grams 08/13/22 07/01/24 Rx Vulvodynia Cream CMP Lidocaine 4% Gel 1 ea topical .QD PRN Vulvodynia 08/13/22 07/01/24 Rx #15 grams lancets #200 ea 10/14/22 07/01/24 Rx omeprazole 20 mg capsule,delayed 20 mg PO DAILY #90 caps 08/10/23 07/01/24 Rx release simvastatin 20 mg tablet 20 mg PO HS #90 tabs 08/24/23 07/01/24 Rx zolpidem 5 mg tablet 5 mg PO BEDTIME PRN insomnia #60 09/11/23 07/01/24 Rx tabs estradiol 2 mg (7.5 mcg/24 hour) 1 vag ring vaginal [id number] #1 ea 09/18/23 07/01/24 Rx vaginal ring (Estring) glimepiride 2 mg tablet 2 mg PO BID #180 tabs 11/17/23 07/01/24 Rx insulin glargine 100 unit/mL (3 See Rx Instructions SUBCUT BID #60 12/11/23 07/01/24 Rx mL) subcutaneous pen (Lantus mL Solostar U-100 Insulin) venlafaxine 37.5 mg 37.5 mg PO DAILY for neuropathic 03/01/24 07/01/24 Rx capsule,extended release 24 hr pain #60 caps semaglutide 2 mg/dose (8 mg/3 mL) 2 mg (0.75 mL) SUBCUT QWEEK #3 mL 03/14/24 07/01/24 Rx subcutaneous pen injector (Ozempic) Metamucil 3in1 3 cap PO DAILY 05/16/24 07/01/24 History pen needle, diabetic 31 gauge x #100 ea 06/09/24 07/01/24 Rx 1/4 (1st Tier Unifine Pentips) Allergies Allergy/AdvReac Type Severity Reaction Status Date / Time metformin AdvReac Severe very sick, Verified 07/04/24 12:41 NV, diarrhea tramadol AdvReac Severe Hallucinati Verified 07/04/24 12:41 ng exenatide [From Bydureon] AdvReac Intermediate unknown Verified 07/04/24 12:41 pioglitazone [From Actos] AdvReac Intermediate weight gain Verified 07/04/24 12:41 sitagliptin [From Januvia] AdvReac Intermediate nausea Verified 07/04/24 12:41 ppd test Allergy Severe swelling, Uncoded 07/01/24 10:05 hives Exam Narrative Exam Narrative: HEENT: No thyromegaly, no anterior cervical or supraclavicular lymphadenopathy. Lungs:Clear to auscultation bilaterally, no wheezes. Cardiovascular: Regular rate and rhythm, no murmurs, rubs, or gallops. Abdomen: No scars. No hepatosplenomegaly. No masses palpable. External genitalia: Normal Vagina: Normal Cervix: Stenotic Bimanual exam: 6 Week size anteverted uterus. Mobile. Extremities: No edema Assessment & Plan Assessment & Plan narrative: Assessment: 64-year-old 2 para 2 with postmenopausal bleeding, endometrial hyperplasia on ultrasound, and a stenotic cervix Unable to obtain endometrial biopsy in the office Plan: D&C hysteroscopy Kyleena IUD insertion for progesterone The risks, benefits, and alternatives to the procedure were explained to the patient. The risks including bleeding, infection, and uterine perforation. She understands these risks and agrees to proceed. A full par Q was held and consent form was signed. Time-Based Coding :: [TOTAL MINUTES] spent with patient and on the chart (including review of chart, obtaining history, exam, reviewing outside data, placing orders, documenting exam and treatment plan, and counseling patient) on [DATE].
--- NOTE | 2024-07-04 12:42 | PM.PREOP ---
Pre-operative Note Interval Note History & Physical reviewed/Exam performed by Physician: Yes Changes to H&P: No H&P completed within 30 days and has changed as indicated here:: 07/04/24
[2024-07-04 12:48] VITALS: BMI 28.3
--- NOTE | 2024-07-04 12:56 | SUR.OPER ---
Lithotomy on padded OR bed, head on pillow, arms secured on padded arm boards at <90 degrees abduction. Legs secured in padded yellow fins stirrups.
[2024-07-04 12:57] VITALS: BP 133/83; PULSE 107; RESP 17; TEMP 36.1; O2SAT 97
[2024-07-04] MEDS: LACTATED RINGERS 1,000 ML 21 ML IV (13:09)
[2024-07-04] MEDS: ACETAMINOPHEN 325 MG TABLET 975 MG PO (13:09)
[2024-07-04] MEDS: SCOPOLAMINE 1 PATCH TOP (13:09)
--- NOTE | 2024-07-04 13:59 | PM.GYNOP.1 ---
Operative Date/Time/Diagnoses Date of procedure: 07/04/24 Time of procedure: 13:59 Pre-op diagnosis: Postmenopausal bleeding Endometrial hyperplasia Cervical stenosis Post-op diagnosis: same Procedure & Clinicians Procedure: Procedures Operation Date: 07/04/24 13:15 Actual Procedure Side Surgeon p Hysteroscopy D&C, Kyleena IUD placement Xi Dominguez MD Indications: 64-year-old 2 para 2 with postmenopausal bleeding, endometrial hyperplasia by ultrasound, and cervical stenosis. Unable to obtain biopsy in the office. Patient does not tolerate systemic progesterone. Surgeon: Xi Dominguez Anesthesia Type: General Operative Notes Findings: 7 week size slightly retroverted uterus Cervical stenosis Both fallopian tube ostia observed Small polyp originating from the right cornual area Closure Type: not applicable Specimen(s): endometrial curettings and endometrial polyp Estimated blood loss (mL): 5 Blood products transfused: none Procedure in detail: After informed consent was obtained, the patient was taken to the operating room where she was placed in the dorsal supine position. After adequate LMA general anesthesia was achieved, she was placed in the dorsal lithotomy position, and prepped and draped in the usual sterile fashion. A time-out was performed. A bivalve speculum was placed into the vagina and the anterior lip of the cervix was grasped with a single-tooth tenaculum. Using the gold handle dilators, the cervix was carefully dilated up to the regular Hegar dilators. The Hegar dilators were then used to dilate up to #8. The hysteroscope passed easily into the endometrial cavity. There was a small polyp originating from the right cornua of the uterus. The hysteroscope was removed. The polyp was resected. Gentle sharp curettage was performed. The Kyleena IUD was inserted without difficulty. The strings were cut to 1.5 cm. The single-tooth tenaculum was removed from the anterior lip of the cervix. The bivalve speculum was removed from the vagina. Sponge, lap, and instrument counts were correct x2. The patient tolerated the procedure well, and was taken to PACU in stable condition. Complications: none Post-operative Condition: stable Disposition: PACU Plan for aftercare: Home after recovry
[2024-07-04 14:07] VITALS: BP 132/83; PULSE 87; RESP 12; TEMP 36.3; O2SAT 97
[2024-07-04 14:12] VITALS: BP 131/80; PULSE 54; RESP 20; O2SAT 95
[2024-07-04 14:17] VITALS: BP 130/89; PULSE 82; RESP 13; O2SAT 93
[2024-07-04 14:23] VITALS: BP 128/83; PULSE 76; RESP 15; O2SAT 92
[2024-07-04 14:30] VITALS: BP 136/93; PULSE 72; RESP 13; TEMP 36.1; O2SAT 94
[2024-07-04] MEDS: OXYCODONE IR 5 MG TABLET PO (14:47)
[2024-07-04] MEDS: ONDANSETRON 4 MG/2 ML INJ IV (14:47)
== END 2024-07-04 15:15 | disposition home or self-care (01) ==
PROVIDERS: PCP Internal Medicine; Referring Provider Obstetrics & Gynecology; Visit Provider Obstetrics & Gynecology
PROC: 0UDB8ZZ Extraction of Endometrium, Via Natural or Artificial Opening Endoscopic (ICD-10-PCS; CPT 58558; principal; 2024-07-04 13:15)
DX: N95.0 Postmenopausal bleeding (principal); N88.2 Stricture and stenosis of cervix uteri; N84.0 Polyp of corpus uteri
CPT/HCPCS: 58558; 58300; 82962; J0330; J2405; J2704; J3010

== ENCOUNTER → 2024-11-11 09:48 | Outpatient (CLI) | payer MEDICARE, OTHER, SELFPAY ==
[2024-11-11 10:29] LABS: Hemoglobin A1C% w Est Avg Glu 6.3 % (4.0-6.0)
[2024-11-11 10:39] LABS: Alanine Aminotransferase 19 IU/L (<35); Albumin 4.5 g/dL (3.5-5.0); Albumin Globulin Ratio 1.5 (1.0-2.8); Alkaline Phosphatase 82 U/L (38-126); Aspartate Aminotransferase 27 IU/L (14-36); BUN Creatinine Ratio 14.4 (6-22); Bilirubin Total 0.8 mg/dL (0.2-1.3); Blood Urea Nitrogen 14 mg/dL (7-17); Calcium 10.5 mg/dL (8.4-10.2); Carbon Dioxide 24 mmol/L (22-32); Chloride 106 mmol/L (98-107); Cholesterol 182 mg/dL (140-199); Estimated Glomerular Filt Rate > 60 mL/min (>60); Globulin 3.1 g/dL (1.7-4.1); Glucose 135 mg/dL (80-110); HDL Cholesterol 46 mg/dL (40-60); HEMOLYSIS < 15 (0-50); LDL Cholesterol Calculated 104 mg/dL (<100); Potassium 4.2 mmol/L (3.4-5.1); Sodium 139 mmol/L (137-145); Total Protein 7.6 g/dL (6.3-8.2); Triglycerides 159 mg/dL (35-150)
[2024-11-11 12:32] LABS: Creatinine Urine Random 99.68 mg/dL
[2024-11-11 12:38] LABS: Microalbumin Urine Random < 0.6 mg/dL (0-1.6)
== END ==
PROVIDERS: PCP Internal Medicine; Referring Provider Internal Medicine; Visit Provider Internal Medicine
DX: E11.9 Type 2 diabetes mellitus without complications (principal); Z79.4 Long term (current) use of insulin; E78.5 Hyperlipidemia, unspecified; R79.89 Other specified abnormal findings of blood chemistry; E83.52 Hypercalcemia
CPT/HCPCS: 36415; 80053; 80061; 82043; 82570; 83036

== ENCOUNTER → 2024-11-24 16:41 | Outpatient (CLI) | payer MEDICARE, OTHER, SELFPAY ==
--- NOTE | 2024-11-24 16:43 | DI.MG.S_ITS ---
BILATERAL DIGITAL SCREENING MAMMOGRAM 3D/2D WITH CAD: 11/24/2024 CLINICAL: Routine screening. Comparison is made to exams dated: 07/28/2023 mammogram, 01/14/2022 mammogram, and 05/25/2020 mammogram - [facility]. The breasts are almost entirely fatty (category a/<25% glandular tissue). Current study was also evaluated with a Computer Aided Detection (CAD) system. No significant masses, calcifications, or other findings are seen in either breast. There has been no significant interval change. IMPRESSION: NEGATIVE There is no mammographic evidence of malignancy. A 1 year screening mammogram is recommended. Based on the Tyrer Cuzick model (a risk assessment model) the patient's lifetime risk is 3.0% and her 10 year risk is 1.5%. According to the ACR, ACS, and NCCN guidelines, an annual breast MRI exam along with mammogram is recommended if the patient's lifetime risk is 20% or greater. This exam was interpreted at Station ID: [id number]. NOTE: For mammograms, a report in lay terms will be sent to the patient. Approximately 15% of breast malignancies will not be visualized mammographically. In the management of a palpable breast mass, a negative mammogram must not discourage biopsy of a clinically suspicious lesion. Electronically Signed By: Luis figueroa/jessica:11/26/2024 14:34:25 letter sent: Normal Exam ACR BI-RADS Category 1: Negative
[2024-11-28 12:09] LABS: Fecal Immunochemical Test Negative (Negative)
== END ==
PROVIDERS: PCP Internal Medicine; Referring Provider Internal Medicine; Visit Provider Internal Medicine
DX: Z12.31 Encounter for screening mammogram for malignant neoplasm of breast (principal); R92.313 Mammographic fatty tissue density, bilateral breasts; Z12.11 Encounter for screening for malignant neoplasm of colon
CPT/HCPCS: 77063; 77067; 82274

== ENCOUNTER → 2025-04-13 10:53 | Outpatient (CLI) | payer MEDICARE, OTHER, SELFPAY ==
[2025-04-13 11:47] LABS: Hemoglobin A1C% w Est Avg Glu 6.0 % (4.0-6.0)
[2025-04-13 12:35] LABS: Alanine Aminotransferase 14 IU/L (<35); Albumin 4.5 g/dL (3.5-5.0); Albumin Globulin Ratio 1.4 (1.0-2.8); Alkaline Phosphatase 80 U/L (38-126); Blood Urea Nitrogen 15 mg/dL (7-17); Calcium 10.1 mg/dL (8.4-10.2); Carbon Dioxide 28 mmol/L (22-32); Chloride 104 mmol/L (98-107); Cholesterol 155 mg/dL (140-199); Estimated Glomerular Filt Rate > 60 mL/min (>60); Globulin 3.2 g/dL (1.7-4.1); Glucose 106 mg/dL (70-99); HDL Cholesterol 46 mg/dL (40-60); HEMOLYSIS < 15 (0-50); Potassium 3.8 mmol/L (3.4-5.1); Sodium 142 mmol/L (137-145); Total Protein 7.7 g/dL (6.3-8.2); Triglycerides 172 mg/dL (35-150)
== END ==
PROVIDERS: PCP Internal Medicine; Referring Provider Internal Medicine; Visit Provider Internal Medicine
DX: E11.9 Type 2 diabetes mellitus without complications (principal); E78.5 Hyperlipidemia, unspecified; N18.31 Chronic kidney disease, stage 3a; Z79.4 Long term (current) use of insulin
CPT/HCPCS: 36415; 80053; 80061; 83036

== ENCOUNTER → 2025-04-24 12:01 | Outpatient (CLI) | payer MEDICARE, OTHER, SELFPAY ==
--- NOTE | 2025-04-24 12:01 | DI.RAD.S_ITS ---
PROCEDURE: XR DEXA AXIAL SKELETON INDICATIONS: osteo COMPARISON: [facility], CR, XR DEXA AXIAL SKELETON, 06/02/2022, 10:21. FINDINGS: Lumbar Spine: Bone mineral density 0.830 (previously 0.836) g/cm2, T score -2.0 (previously -1.9). Left Femoral Neck: Bone mineral density 0.765 (previously 0.792) g/cm2, T score -0.8 (previously -0.5). Left Hip: Bone mineral density 0.875 (previously 0.900) g/cm2, T score -0.6 (previously -0.3). Fracture Risk Calculation (when applicable): 10-year fracture risk of a major osteoporotic fracture 7.9 percent and of a hip fracture 0.5 percent. (T score greater or equal to -1.0 to: NORMAL) (T score from -1.1 to -2.4: OSTEOPENIA) (T score less than or equal to -2.5: OSTEOPOROSIS) IMPRESSION: Osteopenia--- recommend repeat DEXA in 2-3 years for reassessment. Follow-up guidelines as follows: Osteoporosis: Consider a repeat DEXA and Vertebral Fracture Assessment (VFA) exam in 2 years or sooner if medically necessary, to reassess this patient's status. Osteopenia: Consider a repeat DEXA in 2-3 years to reassess this patient's status, or if there is a new clinical indication. Normal: Consider a repeat DEXA in 5 years or sooner, or if there is a new clinical indication. All treatment decisions require clinical judgment and consideration of individual patient factors, including patient preferences, comorbidities, previous drug use, risk factors not captured in the FRAX model (e.g., frailty, falls, vitamin D deficiency, increased bone turnover, interval significant decline in bone density ) and possible under- or over-estimation of fracture risk by FRAX. In addition, the NOF Guide recommends that FDA-approved medical therapies be considered in postmenopausal women and men age >= 50 years with a: * Hip or vertebral (clinical or morphometric) fracture * T-score of <=-2.5 at the spine or hip * Ten-year fracture probability by FRAX of >= 3% for hip fracture or >=20% for major osteoporotic fracture. Dictated by: Mann Barrett M.D. on 04/24/2025 at 19:18 Approved by: Mann Barrett M.D. on 04/24/2025 at 19:21
== END ==
PROVIDERS: PCP Internal Medicine; Referring Provider Internal Medicine; Visit Provider Internal Medicine
DX: M85.89 Other specified disorders of bone density and structure, multiple sites (principal)
CPT/HCPCS: 77080

== ENCOUNTER → 2025-10-11 11:29 | Outpatient (CLI) | payer MEDICARE, OTHER, SELFPAY ==
[2025-10-11 12:12] LABS: Hemoglobin A1C% w Est Avg Glu 6.3 % (4.0-6.0)
[2025-10-11 12:32] LABS: Alanine Aminotransferase 21 IU/L (<35); Albumin 4.6 g/dL (3.5-5.0); Albumin Globulin Ratio 1.4 (1.0-2.8); Alkaline Phosphatase 84 U/L (38-126); Blood Urea Nitrogen 13 mg/dL (7-17); Calcium 10.3 mg/dL (8.4-10.2); Carbon Dioxide 27 mmol/L (22-32); Chloride 104 mmol/L (98-107); Cholesterol 164 mg/dL (140-199); Estimated Glomerular Filt Rate > 60 mL/min (>60); Globulin 3.3 g/dL (1.7-4.1); Glucose 113 mg/dL (70-99); HDL Cholesterol 48 mg/dL (40-60); HEMOLYSIS < 15 (0-50); Potassium 4.6 mmol/L (3.4-5.1); Sodium 142 mmol/L (137-145); Total Protein 7.9 g/dL (6.3-8.2); Triglycerides 212 mg/dL (35-150)
[2025-10-11 15:27] LABS: Microalbumi Creatinin Ratio Ur 9.0 ug/mg CR (<30)
== END ==
PROVIDERS: PCP Internal Medicine; Referring Provider Internal Medicine; Visit Provider Internal Medicine
DX: E11.22 Type 2 diabetes mellitus with diabetic chronic kidney disease (principal); Z79.4 Long term (current) use of insulin; N18.31 Chronic kidney disease, stage 3a; E78.2 Mixed hyperlipidemia; R79.89 Other specified abnormal findings of blood chemistry
CPT/HCPCS: 36415; 80053; 80061; 82043; 82570; 83036